=== PATIENT | female | born 2000 | race Caucasian/White ===

== ENCOUNTER 2021-08-01 10:09 | Observation (INO) ==
[2021-08-01] MEDS ORDERED: SODIUM CHLORIDE 0.9% 1000ML 1,000 ML IV STA (11:16)
[2021-08-01] MEDS ORDERED: ONDANSETRON INJ 2 MG/ML 2 ML VIAL IV STA ×2 (11:21→11:58)
--- NOTE | 2021-08-01 11:21 | Emergency Department Note ---
History of Present Illness General Chief complaint: Vomiting Stated complaint: VOMITING DEHYDRATED Time Seen by Provider: 08/01/21 11:05 Source: patient Mode of arrival: ambulatory Limitations: no limitations History of Present Illness Maximum Pain Intensity: 8 This patient is a 20-year-old female comes in after having multiple episodes of vomiting since around 5:00 in the morning. She says been dark with may be slight streaks of blood. No history of similar. Denies . No trauma or injury. She had normal bowel movements with the last 2 hours ago without any diarrhea constipation or blood or melena. No fever or chills. no chest pain or shortness of breath with exception of she says when she gets nauseated she does feel somewhat short of breath. No unusual food or sick contacts did have the Co vid vaccine. No headache. She did drink heavily yesterday at the football game. She said it was social denies that she was trying to hurt herself or overdose. Home Medications Medication Instructions Recorded Confirmed Type norgestrel 0.3 mg-ethinyl 1 tab PO DAILY 11/04/19 08/01/21 History estradiol 30 mcg tablet (Charisma (28)) fluoxetine 10 mg capsule 10 mg PO DAILY 08/01/21 08/01/21 History Allergies Allergy/AdvReac Type Severity Reaction Status Date / Time bacitracin Allergy Redness of Unverified 08/01/21 12:06 [From Neosporin Skin ([id number])] neomycin Allergy Redness of Unverified 08/01/21 12:06 [From Neosporin Skin ([id number])] polymyxin B Allergy Redness of Unverified 08/01/21 12:06 [From Neosporin Skin ([id number])] Past Med/Surg History Medical History (Updated 08/01/21 @ 15:23 by Nora Ochoa PA-C) GERD (gastroesophageal reflux disease) Surgical History (Updated 08/01/21 @ 14:08 by Nora Ochoa PA-C) History of shoulder surgery R labral repair History of wisdom tooth extraction Family History (Updated 08/01/21 @ 14:09 by Nora Ochoa PA-C) Mother Hypertension Father Hypertension Gout Other Kidney stones Social History (Updated 09/12/21 @ 14:10 by Nora Ochoa PA-C) Smoking Status: Never smoker Hx Alcohol Use: Yes Alcohol type: beer and hard liquor Alcohol Intake Frequency: 2-4 x/Month Hx Substance Use: No Preferred Language: [place]al[place] marital status: Single Feels Safe at Home: Yes Review of Systems A total of 10 systems reviewed and were otherwise negative Physical Exam Vital Signs Vital Signs - 24 hr 08/01/21 10:35 08/01/21 11:06 08/01/21 11:30 Temperature 36.7 C Temperature Source Temporal Artery Scan Pulse Rate 90 83 83 Pulse Rate from SpO2 Sensor 87 83 Pulse Rhythm Respiratory Rate 18 14 17 Respiratory Effort / Characteristics Non-Labored Spontaneous Respiratory Depth Normal Respiratory Pattern Regular Blood Pressure 166/93 H 153/95 H 148/91 H Blood Pressure Mean 117 114 110 Blood Pressure Position Sitting Pulse Oximetry 100 100 100 Oxygen Delivery Method Room Air Room Air Room Air Sepsis Recent Fever Within 48 Hours No Sepsis New/Unexplained Change in Mental Status N/A Sepsis Action Taken by Nursing No Action Required 08/01/21 11:48 08/01/21 12:00 08/01/21 12:54 Temperature Temperature Source Pulse Rate 88 91 H 90 Pulse Rate from SpO2 Sensor 92 H Pulse Rhythm Regular Respiratory Rate 20 32 H 20 Respiratory Effort / Characteristics Respiratory Depth Respiratory Pattern Blood Pressure 151/95 H 150/101 H Blood Pressure Mean 113 117 Blood Pressure Position Pulse Oximetry 100 100 Oxygen Delivery Method Nasal Cannula Room Air Sepsis Recent Fever Within 48 Hours Sepsis New/Unexplained Change in Mental Status Sepsis Action Taken by Nursing 08/01/21 13:00 08/01/21 13:30 08/01/21 14:00 Temperature Temperature Source Pulse Rate 82 77 73 Pulse Rate from SpO2 Sensor Pulse Rhythm Respiratory Rate 24 21 19 Respiratory Effort / Characteristics Respiratory Depth Respiratory Pattern Blood Pressure 147/104 H 145/102 H 129/81 Blood Pressure Mean 118 116 97 Blood Pressure Position Pulse Oximetry Oxygen Delivery Method Sepsis Recent Fever Within 48 Hours Sepsis New/Unexplained Change in Mental Status Sepsis Action Taken by Nursing 08/01/21 14:56 08/01/21 15:00 08/01/21 15:30 Temperature Temperature Source Pulse Rate 87 77 Pulse Rate from SpO2 Sensor 82 88 76 Pulse Rhythm Respiratory Rate 19 18 Respiratory Effort / Characteristics Respiratory Depth Respiratory Pattern Blood Pressure 133/68 135/74 Blood Pressure Mean 89 94 Blood Pressure Position Pulse Oximetry 98 100 99 Oxygen Delivery Method Room Air Room Air Sepsis Recent Fever Within 48 Hours Sepsis New/Unexplained Change in Mental Status Sepsis Action Taken by Nursing General: Well developed well nourished uncomfortable appearing young female who is holding an emesis bag and complains of feeling nauseated but in no acute distress, breathing comfortably on room air. HEENT: Normal cephalic atraumatic. Pupils are equal round and reactive to light. Extraocular movements are intact. Oropharynx is pink with moist mucous membranes. No swelling of the mouth lips or tongue. Neck: Supple with a midline trachea. No meningeal signs or stiffness, no JVD or bruits. No Stridor. Chest: Clear to auscultation bilaterally. No wheezes or rhonchi. No increased work of breathing. Heart: Regular rate and rhythm without murmurs or gallops. Abdomen: Soft nontender, nondistended without rebound guarding or rigidity. Extremities: No cyanosis clubbing or edema. No calf tenderness or assymetry Spine/Back. Non tender to palpation. No CVA tenderness Skin: Good turgor without rashes. Neurologic exam: Cranial nerves two through 12 are intact. Motor and sensation are intact and symmetrical throughout. Course Administered Medications Potassium Chloride (K Federico / Wtr) 10 meq in 100 mls @ 100 mls/hr IV Q1H BLAS Stop: 08/01/21 16:29 Last Admin: 08/01/21 14:55 Dose: 100 mls/hr Documented by: [id number] Discontinued Medications Sodium Chloride (Nss 1000ml) 1,000 mls @ 999 mls/hr IV .Q1H1M STA Stop: 08/01/21 12:16 Last Infusion: 08/01/21 12:28 Dose: 0 mls/hr Documented by: [id number] Admin: 08/01/21 11:27 Dose: 999 mls/hr Documented by: [id number] Sodium Chloride (Nss 1000ml) 1,000 mls @ 999 mls/hr IV .Q1H1M ONE Stop: 08/01/21 13:04 Last Infusion: 08/01/21 13:11 Dose: 0 mls/hr Documented by: [id number] Admin: 08/01/21 12:10 Dose: 999 mls/hr Documented by: [id number] Promethazine HCl (Phenergan) 12.5 mg in 50.5 mls @ 202 mls/hr IV NOW STA Stop: 08/01/21 13:52 Last Infusion: 08/01/21 14:01 Dose: 0 mls/hr Documented by: [id number] Admin: 08/01/21 13:46 Dose: 202 mls/hr Documented by: [id number] Ioversol (Optiray 320 100ml) 93 ml IV ONCE ONE Stop: 08/01/21 12:36 Last Admin: 08/01/21 12:35 Dose: 93 ml Documented by: [id number] Morphine Sulfate (Morphine Sulfate 2 Mg/Ml Carp) 2 mg IV NOW STA Stop: 08/01/21 11:59 Last Admin: 08/01/21 12:09 Dose: 2 mg Documented by: [id number] Morphine Sulfate (Morphine Sulfate 2 Mg/Ml Carp) 2 mg IV NOW STA Stop: 08/01/21 12:55 Last Admin: 08/01/21 12:57 Dose: 2 mg Documented by: [id number] Ondansetron HCl (Ondansetron Inj 2 Mg/Ml 2 Ml Vial) 4 mg IV NOW STA Stop: 08/01/21 11:22 Last Admin: 08/01/21 11:27 Dose: 4 mg Documented by: [id number] Ondansetron HCl (Ondansetron Inj 2 Mg/Ml 2 Ml Vial) 4 mg IV NOW STA Stop: 08/01/21 11:59 Last Admin: 08/01/21 12:09 Dose: 4 mg Documented by: [id number] Medical Decision Making Differential Diagnosis Gastritis, dehydration, Rubi-Boyer, anemia, , cardiac disease, surgical disease, electrolyte or metabolic abnormality, pulmonary disease Medical Records Attestation: I reviewed the patient's medical records. Laboratory Data Attestation: I reviewed the patient's lab results. Result diagrams: 08/01/21 11:07 08/01/21 11:07 Lab Results 08/01/21 08/01/21 08/01/21 Range/Units 11:07 11:07 11:07 WBC 27.18 H (4.8-10.8) K/uL RBC 4.37 (4.2-5.4) M/uL Hgb 13.8 (12.0-16.0) g/dL Hct 39.5 (37-47) % MCV 90.4 (80-100) fL MCH 31.6 (25-34) pg MCHC 34.9 (32-36) g/dL RDW Std Deviation 41.8 (36.4-46.3) fL RDW Coeff of Cole 12.7 (11.5-14.5) % Plt Count 495 H (130-400) K/uL MPV 9.1 (7.4-10.4) fL Immature Gran % (Auto) 0.6 % Neut % (Auto) 88.9 % Lymph % (Auto) 5.8 % Todd % (Auto) 4.5 % Eos % (Auto) 0.0 % Baso % (Auto) 0.2 % Neut # (Auto) 24.19 H (1.4-6.5) K/uL Lymph # (Auto) 1.57 (1.2-3.4) K/uL Todd # (Auto) 1.22 H (0.11-0.59) K/uL Eos # (Auto) 0.00 (0-0.5) K/uL Baso # (Auto) 0.05 (0-0.2) K/uL Immature Gran # (Auto) 0.15 H (0.00-0.02) K/uL Sodium 143 (136-145) mmol/L Potassium 3.3 L (3.5-5.1) mmol/L Chloride 112 H (98-107) mmol/L Carbon Dioxide 16 L (21-32) mmol/L Anion Gap 15.0 H (3-11) BUN 16 (7-18) mg/dl Creatinine 1.04 (0.6-1.2) mg/dl Est Cr Clr Drug Dosing 64.6 ml/min Est GFR ( Amer) 88.9 ml/min Est GFR (Non-Af Amer) 76.7 ml/min BUN/Creatinine Ratio 15.1 (10-20) Glucose 126 H (70-99) mg/dl Osmolality (280-300) mOsm/kg Calcium 9.2 (8.5-10.1) mg/dl Total Bilirubin 0.5 (0.2-1) mg/dl AST 42 H (15-37) U/L ALT 32 (12-78) U/L Alkaline Phosphatase 94 (45-117) U/L Troponin I (0-0.045) ng/ml Total Protein 8.8 H (6.4-8.2) gm/dl Albumin 4.2 (3.4-5.0) gm/dl Globulin 4.6 H (2.5-4.0) gm/dl Albumin/Globulin Ratio 0.9 (0.9-2) Lipase 76 (73-393) U/L HCG, Qual Negative (Negative) Urine Color Urine Appearance (Clear) Urine pH (4.5-7.5) Ur Specific [place] (1.000-1.030) Urine Protein (Negative) Urine Glucose (UA) (Negative) Urine Ketones (Negative) Urine Blood (Negative) Urine Nitrite (Negative) Urine Bilirubin (Negative) Urine Urobilinogen (Negative) Ur Leukocyte Esterase (Negative) Urine WBC (Auto) (0-5) /hpf Urine RBC (Auto) (0-4) /hpf U Hyaline Cast (Auto) (0-5) /lpf U Epithel Cells (Auto) (0-5) /lpf Urine Bacteria (Auto) (Negative) COVID-19 Eval Order 08/01/21 08/01/21 08/01/21 Range/Units 11:07 11:07 13:13 WBC (4.8-10.8) K/uL RBC (4.2-5.4) M/uL Hgb (12.0-16.0) g/dL Hct (37-47) % MCV (80-100) fL MCH (25-34) pg MCHC (32-36) g/dL RDW Std Deviation (36.4-46.3) fL RDW Coeff of Cole (11.5-14.5) % Plt Count (130-400) K/uL MPV (7.4-10.4) fL Immature Gran % (Auto) % Neut % (Auto) % Lymph % (Auto) % Todd % (Auto) % Eos % (Auto) % Baso % (Auto) % Neut # (Auto) (1.4-6.5) K/uL Lymph # (Auto) (1.2-3.4) K/uL Todd # (Auto) (0.11-0.59) K/uL Eos # (Auto) (0-0.5) K/uL Baso # (Auto) (0-0.2) K/uL Immature Gran # (Auto) (0.00-0.02) K/uL Sodium (136-145) mmol/L Potassium (3.5-5.1) mmol/L Chloride (98-107) mmol/L Carbon Dioxide (21-32) mmol/L Anion Gap (3-11) BUN (7-18) mg/dl Creatinine (0.6-1.2) mg/dl Est Cr Clr Drug Dosing ml/min Est GFR ( Amer) ml/min Est GFR (Non-Af Amer) ml/min BUN/Creatinine Ratio (10-20) Glucose (70-99) mg/dl Osmolality 311 H (280-300) mOsm/kg Calcium (8.5-10.1) mg/dl Total Bilirubin (0.2-1) mg/dl AST (15-37) U/L ALT (12-78) U/L Alkaline Phosphatase (45-117) U/L Troponin I < 0.015 (0-0.045) ng/ml Total Protein (6.4-8.2) gm/dl Albumin (3.4-5.0) gm/dl Globulin (2.5-4.0) gm/dl Albumin/Globulin Ratio (0.9-2) Lipase (73-393) U/L HCG, Qual (Negative) Urine Color Yellow Urine Appearance Clear (Clear) Urine pH 7.5 (4.5-7.5) Ur Specific [place] 1.025 (1.000-1.030) Urine Protein Negative (Negative) Urine Glucose (UA) Negative (Negative) Urine Ketones 1+ H (Negative) Urine Blood Trace H (Negative) Urine Nitrite Negative (Negative) Urine Bilirubin Negative (Negative) Urine Urobilinogen Negative (Negative) Ur Leukocyte Esterase Negative (Negative) Urine WBC (Auto) 5-10 H (0-5) /hpf Urine RBC (Auto) 0-4 (0-4) /hpf U Hyaline Cast (Auto) 1-5 (0-5) /lpf U Epithel Cells (Auto) 20-30 H (0-5) /lpf Urine Bacteria (Auto) Negative (Negative) COVID-19 Eval Order 08/01/21 Range/Units 15:08 WBC (4.8-10.8) K/uL RBC (4.2-5.4) M/uL Hgb (12.0-16.0) g/dL Hct (37-47) % MCV (80-100) fL MCH (25-34) pg MCHC (32-36) g/dL RDW Std Deviation (36.4-46.3) fL RDW Coeff of Cole (11.5-14.5) % Plt Count (130-400) K/uL MPV (7.4-10.4) fL Immature Gran % (Auto) % Neut % (Auto) % Lymph % (Auto) % Todd % (Auto) % Eos % (Auto) % Baso % (Auto) % Neut # (Auto) (1.4-6.5) K/uL Lymph # (Auto) (1.2-3.4) K/uL Todd # (Auto) (0.11-0.59) K/uL Eos # (Auto) (0-0.5) K/uL Baso # (Auto) (0-0.2) K/uL Immature Gran # (Auto) (0.00-0.02) K/uL Sodium (136-145) mmol/L Potassium (3.5-5.1) mmol/L Chloride (98-107) mmol/L Carbon Dioxide (21-32) mmol/L Anion Gap (3-11) BUN (7-18) mg/dl Creatinine (0.6-1.2) mg/dl Est Cr Clr Drug Dosing ml/min Est GFR ( Amer) ml/min Est GFR (Non-Af Amer) ml/min BUN/Creatinine Ratio (10-20) Glucose (70-99) mg/dl Osmolality (280-300) mOsm/kg Calcium (8.5-10.1) mg/dl Total Bilirubin (0.2-1) mg/dl AST (15-37) U/L ALT (12-78) U/L Alkaline Phosphatase (45-117) U/L Troponin I (0-0.045) ng/ml Total Protein (6.4-8.2) gm/dl Albumin (3.4-5.0) gm/dl Globulin (2.5-4.0) gm/dl Albumin/Globulin Ratio (0.9-2) Lipase (73-393) U/L HCG, Qual (Negative) Urine Color Urine Appearance (Clear) Urine pH (4.5-7.5) Ur Specific [place] (1.000-1.030) Urine Protein (Negative) Urine Glucose (UA) (Negative) Urine Ketones (Negative) Urine Blood (Negative) Urine Nitrite (Negative) Urine Bilirubin (Negative) Urine Urobilinogen (Negative) Ur Leukocyte Esterase (Negative) Urine WBC (Auto) (0-5) /hpf Urine RBC (Auto) (0-4) /hpf U Hyaline Cast (Auto) (0-5) /lpf U Epithel Cells (Auto) (0-5) /lpf Urine Bacteria (Auto) (Negative) COVID-19 Eval Order Covid19 at [facility] Imaging Data Attestation: I personally reviewed and interpreted this imaging study as follows: My Impression: Chest xray- Radiologist's Impression: Chest X-Ray 08/01/21 11:16 XR chest 1V portable HISTORY: vomiting COMPARISON: Chest 11/04/2019. FINDINGS: The lungs are clear. Cardiac silhouette is normal in size. No pleural effusions. No pneumothorax. IMPRESSION: No acute process. ACT 112: Negative or not required by law. Electronically signed by: Phil Borja M.D. 08/01/2021 11:33 AM Abdomen/Pelvis CT 08/01/21 12:[address] WITH CONTRAST, ABDOMEN AND PELVIS CT WITH INTRAVENOUS CONTRAST CT DOSE: 447.51 mGy.cm HISTORY: epigastric pain vomiting, eval for esophageal injury. TECHNIQUE: Multiaxial CT images of the chest, abdomen, and pelvis were performed following the intravenous administration of contrast. A dose lowering technique was utilized adhering to the principles of ALARA. COMPARISON: Abdomen and pelvis CT 11/04/2019. FINDINGS: Chest CT: Question mild thickening at the gastroesophageal junction. No paraesophageal edema or pneumoperitoneum to suggest esophageal tear. No pneumothorax. The central airways are patent. The lungs are clear. No fractures within the visualized osseous structures. The mediastinal vascular structures are within normal limits. No pleural or pericardial effusions. Abdomen/pelvis CT: No pneumoperitoneum. No pneumatosis. The liver, gallbladder, spleen, adrenal glands, pancreas, and kidneys are unremarkable. No hydronephrosis. The main portal vein is patent. No retroperitoneal lymphadenopathy. Normal caliber abdominal aorta. The bladder is unremarkable. The uterus and bilateral adnexa are within normal limits. No pelvic free fluid. No bowel wall thickening or obstruction. Normal appendix. IMPRESSION: 1. Questionable mild thickening at the gastroesophageal junction. However, no paraesophageal edema/fluid or pneumoperitoneum to suggest an esophageal tear. 2. No bowel wall thickening or obstruction. 3. The lungs are clear. ACT 112: Negative or not required by law. Electronically signed by: Phil Borja M.D. 08/01/2021 1:[address] 08/01/21 12:[address] WITH CONTRAST, ABDOMEN AND PELVIS CT WITH INTRAVENOUS CONTRAST CT DOSE: 447.51 mGy.cm HISTORY: epigastric pain vomiting, eval for esophageal injury. TECHNIQUE: Multiaxial CT images of the chest, abdomen, and pelvis were performed following the intravenous administration of contrast. A dose lowering technique was utilized adhering to the principles of ALARA. COMPARISON: Abdomen and pelvis CT 11/04/2019. FINDINGS: Chest CT: Question mild thickening at the gastroesophageal junction. No par aesophageal edema or pneumoperitoneum to suggest esophageal tear. No pneumothorax. The central airways are patent. The lungs are clear. No fractures within the visualized osseous structures. The mediastinal vascular structures are within normal limits. No pleural or pericardial effusions. Abdomen/pelvis CT: No pneumoperitoneum. No pneumatosis. The liver, gallbladder, spleen, adrenal glands, pancreas, and kidneys are unremarkable. No hydronephrosis. The main portal vein is patent. No retroperitoneal lymphadenopathy. Normal caliber abdominal aorta. The bladder is unremarkable. The uterus and bilateral adnexa are within normal limits. No pelvic free fluid. No bowel wall thickening or obstruction. Normal appendix. IMPRESSION: 1. Questionable mild thickening at the gastroesophageal junction. However, no paraesophageal edema/fluid or pneumoperitoneum to suggest an esophageal tear. 2. No bowel wall thickening or obstruction. 3. The lungs are clear. ACT 112: Negative or not required by law. Electronically signed by: Phil Borja M.D. 08/01/2021 1:02 PM ECG Data Attestation: I personally reviewed and interpreted this ECG as follows: Indication: + chest pain Rate (beats per minute): 86 Rhythm: + normal sinus ECG Intervals/blocks: + Normal QRS, + Normal QT and + Normal DE ECG [place]: + Normal ECG ST segments: + T-wave inversions (Inferior) ECG Findings: no PACs or no PVCs Comparison ECG Date: no prior available MDM Narrative This patient comes in as described above. He was placed in room C7. She is here for treatment evaluation of vomiting. She appears uncomfortable but in no significant respiratory distress. IV access was established hydrated wth a 1 L IV normal saline bolus and given Zofran 4 mg IV. Multiple blood testing was obtained. She was reassessed frequently. She did receive the fluids but still was feeling nauseated and complained of pain. Concerned that her white count was 27,000 which was much higher than expected she is also somewhat acidotic. Her BUN and creatinine are normal however given her slender body habitus may be elevated for her. I did order additional IV fluids as well as additional Zofran 4 mg and morphine 2 mg IV as she was complained of pain I did order CAT scan of the chest and abdomen with IV contrast as it wanted to rule out any surgical or traumatic issue. Particular vomiting were make sure there was not any evidence to suggest esophageal rupture. There is nothing to suggest that on plain films. EKG does not suggest acute coronary syndrome or arrhythmia. I did discuss the case with Dr. Patricia Johnson who recommends we do observe her. The patient has thrown up some blood prior to coming here and it could be that she has Rubi- Boyer tear as well. She continues to have some nausea we did give her Phenergan 12.5 mg IV. I have consulted the [facility] hospitalist to see her in the ER for further evaluation/admission/observation. Continuous cardiac monitoring: Orders placed in EMR for continuous cardiac monitoring. Upon interpretation the patient was noted to have a normal sinus rhythm with a rate of 90 Impression & Plan Vomiting, Gastritis, Epigastric abdominal pain, Not currently Discharge Plan Visit Data Chief Complaint: Vomiting Stated Complaint: VOMITING DEHYDRATED ED Provider: Zurdo Boggs Discharge Problem: Vomiting, Gastritis, Epigastric abdominal pain, Not currently Forms Stand Alone Forms: [employer] Prescriptions Prescriptions: No Action Cryselle (28) 0.3-30 mg-mcg Tablet 1 tab PO DAILY RF: 0 fluoxetine 10 mg capsule 10 mg PO DAILY RF: 0 Referrals Referrals: Valentine Knapp MD [Primary Care Provider] - Discharge Problem: Vomiting Qualifiers: Vomiting type: unspecified Vomiting Intractability: non-intractable Nausea presence: with nausea Qualified Code(s): R11.2 - Nausea with vomiting, unspecified Gastritis Qualifiers: Gastritis type: alcoholic Chronicity: acute Gastritis bleeding: presence of bleeding unspecified Qualified Code(s): K29.20 - Alcoholic gastritis without bleeding
[2021-08-01 11:25] LABS: Hematocrit (blood only) 39.5 % (37-47); Hemoglobin 13.8 g/dL (12.0-16.0); Mean Corpuscular Hemoglobin 31.6 pg (25-34); Mean Corpuscular Hgb Conc 34.9 g/dL (32-36); Mean Corpuscular Volume 90.4 fL (80-100); Mean Platelet Volume 9.1 fL (7.4-10.4); Platelet Count 495 K/uL (130-400); RDW Coefficient of Variation 12.7 % (11.5-14.5); RDW Standard Deviation 41.8 fL (36.4-46.3); Red Blood Count 4.37 M/uL (4.2-5.4); White Blood Count 27.18 K/uL (4.8-10.8)
--- NOTE | 2021-08-01 11:34 | XRay Report ---
XR chest 1V portable HISTORY: vomiting COMPARISON: Chest 11/04/2019. FINDINGS: The lungs are clear. Cardiac silhouette is normal in size. No pleural effusions. No pneumot horax. IMPRESSION: No acute process. ACT 112: Negative or not required by law. Electronically signed by: Phil Borja M.D. 08/01/2021 11:33 AM
[2021-08-01 11:44] LABS: Albumin Level 4.2 gm/dl (3.4-5.0); BUN Creatinine Ratio 15.1 (10-20); Calcium 9.2 mg/dl (8.5-10.1); Creatinine Clr Calc Pharmacy 64.6 ml/min; Est GFR (African American) 88.9 ml/min; Est GFR (Non-African American) 76.7 ml/min; Potassium 3.3 mmol/L (3.5-5.1)
[2021-08-01 11:46] LABS: Basophils # (auto) 0.05 K/uL (0-0.2); Basophils % (auto) 0.2 %; Immature Granulocytes # (auto) 0.15 K/uL (0.00-0.02); Immature Granulocytes % (auto) 0.6 %; Lymphocytes # (auto) 1.57 K/uL (1.2-3.4); Lymphocytes % (auto) 5.8 %; Monocytes # (auto) 1.22 K/uL (0.11-0.59); Monocytes % (auto) 4.5 %; Neutrophils # (auto) 24.19 K/uL (1.4-6.5); Neutrophils % (auto) 88.9 %
[2021-08-01 11:47] LABS: Albumin Globulin Ratio 0.9 (0.9-2); Bilirubin,Total 0.5 mg/dl (0.2-1); Globulin 4.6 gm/dl (2.5-4.0); Total Protein 8.8 gm/dl (6.4-8.2)
[2021-08-01 11:52] LABS: Pregnancy Test, Serum Negative (Negative)
[2021-08-01] MEDS ORDERED: MoRPHine SULFATE 2 MG/ML CARP IV STA ×2 (11:58→12:54)
[2021-08-01] MEDS ORDERED: SODIUM CHLORIDE 0.9% 1000ML 1,000 ML IV ONE (12:04)
[2021-08-01] MEDS ORDERED: OPTIRAY 320 100ml IV ONE (12:35)
--- NOTE | 2021-08-01 13:03 | CT Scan Report ---
CHEST CT WITH CONTRAST, ABDOMEN AND PELVIS CT WITH INTRAVENOUS CONTRAST CT DOSE: 447.51 mGy.cm HISTORY: epigastric pain vomiting, eval for esophageal injury. TECHNIQUE: Multiaxial CT images of the chest, abdomen, and pelvis were performed following the intrav enous administration of contrast. A dose lowering technique was utilized adhering to the principles of ALARA. COMPARISON: Abdomen and pelvis CT 11/04/2019. FINDINGS: Chest CT: Question mild thickening at the gastroesophageal junction. No paraesophageal edema or pneum operitoneum to suggest esophageal tear. No pneumothorax. The central airways are patent. The lungs ar e clear. No fractures within the visualized osseous structures. The mediastinal vascular structures a re within normal limits. No pleural or pericardial effusions. Abdomen/pelvis CT: No pneumoperitoneum. No pneumatosis. The liver, gallbladder, spleen, adrenal gland s, pancreas, and kidneys are unremarkable. No hydronephrosis. The main portal vein is patent. No retr operitoneal lymphadenopathy. Normal caliber abdominal aorta. The bladder is unremarkable. The uterus and bilateral adnexa are within normal limits. No pelvic free fluid. No bowel wall thickening or obst ruction. Normal appendix. IMPRESSION: 1. Questionable mild thickening at the gastroesophageal junction. However, no paraesophageal edema/fl uid or pneumoperitoneum to suggest an esophageal tear. 2. No bowel wall thickening or obstruction. 3. The lungs are clear. ACT 112: Negative or not required by law. Electronically signed by: Phil Borja M.D. 08/01/2021 1:02 PM
[2021-08-01 13:33] LABS: Appearance Urine Clear (Clear); Bacteria Urine Automated Negative (Negative); Bilirubin Urine Negative (Negative); Blood Urine Trace (Negative); Color Urine Yellow; Epithelial Cell Urine Auto 20-30 /lpf (0-5); Glucose Urine UA Negative (Negative); Ketones Urine 1+ (Negative); Leukocyte Esterase Urine Negative (Negative); Nitrite Urine Negative (Negative); Protein Urine Negative (Negative); RBC Urine Automated 0-4 /hpf (0-4); Specific Gravity Urine 1.025 (1.000-1.030); Urobilinogen Urine Negative (Negative); pH Urine 7.5 (4.5-7.5)
[2021-08-01] MEDS ORDERED: PROMETHAZINE 12.5 MG/50.5 ML BAG IV STA (13:38)
--- NOTE | 2021-08-01 14:46 | History & Physical Report ---
Date of Service August 01, 2021 Assessment & Plan (1) High anion gap metabolic acidosis: (2) Vomiting: (3) Epigastric abdominal pain: (4) Leukocytosis: (5) Hypokalemia: Plan: Otherwise healthy 20 year old F, [employer] college student, studying kinesiology who presents with intractable nausea and vomiting since 5 AM. She reports hematemesis and "brown vomit." She did partake in drinking activities yesterday during tailgating including two -12 oz truly seltzers and 2 shots of tequila. Denies substance use including marijuana. Ddx: rubi cruz tear, gastritis, esophagitis, pancreatitis among others High anion gap metabolic acidosis Vomiting Epigastric pain admit under obs to med/surg IVF NS + 20meq KCL x 2 L IV Phenergan for nausea consult GI IV PPI BID clear liquid diet tonight NPO after midnight CBC, CMP, Lipase in a.m. Hypokalemia replace Leukocytosis Likely reactive in setting of intractable nausea vomiting No signs or symptoms of infection Repeat in a.m. Depression Continue Prozac On oral contraceptive therapy Dvt ppx: encourage ambulation Q shift Dispo: MedSurg PCP: Valentine Knapp - Pt is a [employer] student FULL CODE Pt was seen and examined in collaboration with Dr. Mascorro, please see addendum History of Present Illness Chief Complaint: Intractable nausea and vomiting since 5 AM. Primary Care Provider: Valentine Knapp MD This is an otherwise healthy 20-year-old female who is a student at [employer] studying kinesiology who presents to ED after developing intractable nausea and vomiting since 5 AM. She states she has been vomiting persistently since 5 AM with associated nausea, epigastric pain and chest pain. Initially pain started in epigastrium, was nonradiating, sharp, nothing made better or worse, but has since radiated to the chest which she describes as burning. She describes vomiting as being profuse and brown with occasional blood. She feels her mouth now taste like blood. She has had history of indigestion in the past but has never had anything significant like this. 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 She was tailgating yesterday and does admit to having 2 shots of tequila and to truly's. She states she typically drinks much more than this so does not suspect this is related to drinking. She denies any illicit substance use. She feels chills and sweats but denies any gaye fever, lightheadedness, dizziness, cough, URI symptoms, dysuria, increased urgency or frequency with urination, melena or hematochezia. She does have underlying depression and anxiety for which she takes Prozac for. She is also on control. In ED they were having difficulty controlling symptoms which is why she was referred for admission. She received 2 L of IV fluid as well as 8 mg of IV Zofran and 4 mg of IV morphine. Prior to my evaluation she did receive IV Phenergan which has subsided her symptoms. ED did reach out to GI on-call Dr. Lainez who recommended observation due to possible concern for Rubi-Cruz tear. Allergies Allergy/AdvReac Type Severity Reaction Status Date / Time bacitracin Allergy Redness of Unverified 08/01/21 12:06 [From Neosporin Skin ([id number])] neomycin Allergy Redness of Unverified 08/01/21 12:06 [From Neosporin Skin ([id number])] polymyxin B Allergy Redness of Unverified 08/01/21 12:06 [From Neosporin Skin ([id number])] Home Medications Medication Instructions Recorded Confirmed Type norgestrel 0.3 mg-ethinyl 1 tab PO DAILY 11/04/19 08/01/21 History estradiol 30 mcg tablet (Charisma (28)) fluoxetine 10 mg capsule 10 mg PO DAILY 08/01/21 08/01/21 History Past Med/Surg History Medical History (Updated 08/01/21 @ 15:23 by Nora Ochoa PA-C) GERD (gastroesophageal reflux disease) Surgical History (Updated 08/01/21 @ 14:08 by Nora Ochoa PA-C) History of shoulder surgery R labral repair History of wisdom tooth extraction Family History (Updated 08/01/21 @ 14:09 by Nora Ochoa PA-C) Mother Hypertension Father Hypertension Gout Other Kidney stones Social History (Updated 08/01/21 @ 14:10 by Nora Ochoa PA-C) Smoking Status: Never smoker Hx Alcohol Use: Yes Alcohol type: beer and hard liquor Alcohol Intake Frequency: 2-4 x/Month Hx Substance Use: No Preferred Language: Macedonian marital status: Single Feels Safe at Home: Yes Review of Systems Review of Systems: All systems reviewed & are unremarkable except as noted in HPI & below Physical Exam Physical Exam: Constitutional: Petite, F, WD/WN, vitals as above, NAD, sitting up in bed, pleasant, conversing easily Head: Normocephalic, Atraumatic Eyes: PERRL, conjunctivae normal, anicteric sclerae ENMT: external ear and nose normal, oropharynx normal Neck: trachea midline, no thyromegaly normal visual inspection Respiratory: normal respiratory effort, lungs clear to auscultation, no wheeze, rales, rhonchi. Normal insp/exp effort, no accessory muscle use Cardiovascular: RRR, no murmur, no edema Vessels: no JVD or carotid bruit Chest: normal inspection of chest + pain to palpation to sternum Abdomen: normal bowel sounds, soft, + epigastric tenderness, no hepatosplenomegaly Musculoskeletal: no cyanosis or clubbing, extremities motor strength 5/5 Skin: no rashes, warm and dry normal turgor Neurologic: PERRL, EOMI, accommodation nl, no face palsy, no dysarthria CN's II-XI intact bilaterally and moves all extremities Psychiatric: A+Ox3, euthymic affect Lymphatic: no cervical or axillary lymphadenopathy : deferred Results & Data Results & Data ([facility]) Vital Signs (Past 12 Hours) Vital Signs Temp Pulse Resp BP Pulse Ox 08/01/21 12:00 91 H 32 H 151/95 H 08/01/21 11:48 88 20 100 08/01/21 11:30 83 17 148/91 H 100 08/01/21 11:06 83 14 153/95 H 100 08/01/21 10:35 36.7 C 90 18 166/93 H 100 Diagnostic Findings Chest X-Ray 08/01/21 11:16 XR chest 1V portable HISTORY: vomiting COMPARISON: Chest 11/04/2019. FINDINGS: The lungs are clear. Cardiac silhouette is normal in size. No pleural effusions. No pneumothorax. IMPRESSION: No acute process. ACT 112: Negative or not required by law. Electronically signed by: Phil Borja M.D. 08/01/2021 11:33 AM Abdomen/Pelvis CT 08/01/21 12:[address] WITH CONTRAST, ABDOMEN AND PELVIS CT WITH INTRAVENOUS CONTRAST CT DOSE: 447.51 mGy.cm HISTORY: epigastric pain vomiting, eval for esophageal injury. TECHNIQUE: Multiaxial CT images of the chest, abdomen, and pelvis were performed following the intravenous administration of contrast. A dose lowering technique was utilized adhering to the principles of ALARA. COMPARISON: Abdomen and pelvis CT 11/04/2019. FINDINGS: Chest CT: Question mild thickening at the gastroesophageal junction. No paraesophageal edema or pneumoperitoneum to suggest esophageal tear. No pneumothorax. The central airways are patent. The lungs are clear. No fractures within the visualized osseous structures. The mediastinal vascular structures are within normal limits. No pleural or pericardial effusions. Abdomen/pelvis CT: No pneumoperitoneum. No pneumatosis. The liver, gallbladder, spleen, adrenal glands, pancreas, and kidneys are unremarkable. No hydronephrosis. The main portal vein is patent. No retroperitoneal ly mphadenopathy. Normal caliber abdominal aorta. The bladder is unremarkable. The uterus and bilateral adnexa are within normal limits. No pelvic free fluid. No bowel wall thickening or obstruction. Normal appendix. IMPRESSION: 1. Questionable mild thickening at the gastroesophageal junction. However, no paraesophageal edema/fluid or pneumoperitoneum to suggest an esophageal tear. 2. No bowel wall thickening or obstruction. 3. The lungs are clear. ACT 112: Negative or not required by law. Electronically signed by: Phil Borja M.D. 08/01/2021 1:[address] 08/01/21 12:[address] WITH CONTRAST, ABDOMEN AND PELVIS CT WITH INTRAVENOUS CONTRAST CT DOSE: 447.51 mGy.cm HISTORY: epigastric pain vomiting, eval for esophageal injury. TECHNIQUE: Multiaxial CT images of the chest, abdomen, and pelvis were performed following the intravenous administration of contrast. A dose lowering technique was utilized adhering to the principles of ALARA. COMPARISON: Abdomen and pelvis CT 11/04/2019. FINDINGS: Chest CT: Question mild thickening at the gastroesophageal junction. No paraesophageal edema or pneumoperitoneum to suggest esophageal tear. No pneumothorax. The central airways are patent. The lungs are clear. No fractures within the visualized osseous structures. The mediastinal vascular structures are within normal limits. No pleural or pericardial effusions. Abdomen/pelvis CT: No pneumoperitoneum. No pneumatosis. The liver, gallbladder, spleen, adrenal glands, pancreas, and kidneys are unremarkable. No hydronephrosis. The main portal vein is patent. No retroperitoneal lymphadenopathy. Normal caliber abdominal aorta. The bladder is unremarkable. The uterus and bilateral adnexa are within normal limits. No pelvic free fluid. No bowel wall thickening or obstruction. Normal appendix. IMPRESSION: 1. Questionable mild thickening at the gastroesophageal junction. However, no paraesophageal edema/fluid or pneumoperitoneum to suggest an esophageal tear. 2. No bowel wall thickening or obstruction. 3. The lungs are clear. ACT 112: Negative or not required by law. Electronically signed by: Phil Borja M.D. 08/01/2021 1:02 PM Medications Administered Medication List Discontinued Medications Sodium Chloride (Nss 1000ml) 1,000 mls @ 999 mls/hr IV .Q1H1M STA Stop: 08/01/21 12:16 Last Infusion: 08/01/21 12:28 Dose: 0 mls/hr Documented by: [id number] Admin: 08/01/21 11:27 Dose: 999 mls/hr Documented by: [id number] Sodium Chloride (Nss 1000ml) 1,000 mls @ 999 mls/hr IV .Q1H1M ONE Stop: 08/01/21 13:04 Last Infusion: 08/01/21 13:11 Dose: 0 mls/hr Documented by: [id number] Admin: 08/01/21 12:10 Dose: 999 mls/hr Documented by: [id number] Promethazine HCl (Phenergan) 12.5 mg in 50.5 mls @ 202 mls/hr IV NOW STA Stop: 08/01/21 13:52 Last Infusion: 08/01/21 14:01 Dose: 0 mls/hr Documented by: [id number] Admin: 08/01/21 13:46 Dose: 202 mls/hr Documented by: [id number] Ioversol (Optiray 320 100ml) 93 ml IV ONCE ONE Stop: 08/01/21 12:36 Last Admin: 08/01/21 12:35 Dose: 93 ml Documented by: [id number] Morphine Sulfate (Morphine Sulfate 2 Mg/Ml Carp) 2 mg IV NOW STA Stop: 08/01/21 11:59 Last Admin: 08/01/21 12:09 Dose: 2 mg Documented by: [id number] Morphine Sulfate (Morphine Sulfate 2 Mg/Ml Carp) 2 mg IV NOW STA Stop: 08/01/21 12:55 Last Admin: 08/01/21 12:57 Dose: 2 mg Documented by: [id number] Ondansetron HCl (Ondansetron Inj 2 Mg/Ml 2 Ml Vial) 4 mg IV NOW STA Stop: 08/01/21 11:22 Last Admin: 08/01/21 11:27 Dose: 4 mg Documented by: [id number] Ondansetron HCl (Ondansetron Inj 2 Mg/Ml 2 Ml Vial) 4 mg IV NOW STA Stop: 08/01/21 11:59 Last Admin: 08/01/21 12:09 Dose: 4 mg Documented by: [id number] COVID-19 Results Results COVID-19 Adm Lab Results: RBC 4.37 M/uL (4.2-5.4) 08/01/21 WBC 27.18 K/uL (4.8-10.8) H 08/01/21 Hgb 13.8 g/dL (12.0-16.0) 08/01/21 Hct 39.5 % (37-47) 08/01/21 Plt Count 495 K/uL (130-400) H 08/01/21 Neutrophils (%) (Auto) 88.9 % 08/01/21 Lymphocytes (%) (Auto) 5.8 % 08/01/21 Monocytes # (Auto) 1.22 K/uL (0.11-0.59) H 08/01/21 Eosinophils # (Auto) 0.00 K/uL (0-0.5) 08/01/21 Immature Granulocyte % (Auto) 0.6 % 08/01/21 Neutrophils # (Auto) 24.19 K/uL (1.4-6.5) H 08/01/21 Lymphocytes # (Auto) 1.57 K/uL (1.2-3.4) 08/01/21 Monocytes # (Auto) 1.22 K/uL (0.11-0.59) H 08/01/21 Eosinophils # (Auto) 0.00 K/uL (0-0.5) 08/01/21 Basophils # (Auto) 0.05 K/uL (0-0.2) 08/01/21 Immature Granulocyte # (Auto) 0.15 K/uL (0.00-0.02) H 08/01/21 Na 143 mmol/L (136-145) 08/01/21 K 3.3 mmol/L (3.5-5.1) L 08/01/21 Cl 112 mmol/L (98-107) H 08/01/21 CO2 16 mmol/L (21-32) L 08/01/21 Anion Gap 15.0 (3-11) H 08/01/21 BUN 16 mg/dl (7-18) 08/01/21 Creatinine 1.04 mg/dl (0.6-1.2) 08/01/21 BUN/Creatinine Ratio 15.1 (10-20) 08/01/21 Glucose Level 126 mg/dl (70-99) H 08/01/21 Ca 9.2 mg/dl (8.5-10.1) 08/01/21 Total Bilirubin 0.5 mg/dl (0.2-1) 08/01/21 AST/SGOT 42 U/L (15-37) H 08/01/21 ALT/SGPT 32 U/L (12-78) 08/01/21 Alkaline Phosphatase 94 U/L (45-117) 08/01/21 Total Protein 8.8 gm/dl (6.4-8.2) H 08/01/21 Albumin 4.2 gm/dl (3.4-5.0) 08/01/21 Globulin 4.6 gm/dl (2.5-4.0) H 08/01/21 Albumin/Globulin Ratio 0.9 (0.9-2) 08/01/21 Troponin I < 0.015 ng/ml (0-0.045) 08/01/21 Procalcitonin < 0.05 ng/ml (0-0.5) 08/01/21 COVID-19 PCR NEGATIVE (Negative) 08/01/[address] 08/01/21 Chest X-Ray 08/01/21 Code Status & VTE Plan Code Status FULL CODE VTE Prophylaxis Plan VTE Prophylaxis will be ordered: No Supervising Physician Co-Signing Physician Notes 20-year-old female with PMH of anxiety on Prozac, on and off indigestion with as needed Tums/omeprazole, binge drinking came in 08/01 with acute onset of repeated vomiting early 5 AM in the morning associated with blood streaking. Her nausea and vomiting has been controlled after medications in the ED. #. Hypertension/tachycardia: Likely secondary to stress, continue to monitor #. Anion gap metabolic acidosis: Anion gap of 15, await serum osmolality. #. Leukocytosis: WBC elevated at 27,000, likely reactive #. Hematemesis/possible Rubi-Cruz tear: GI consulted, appreciate recommendation GENERAL: Alert and oriented x3. NAD, on RA. HEENT: No pallor, no icterus. Pupils equal, round and reactive to light. Oral mucosa moist. NECK: No JVD, no neck masses. HEART: S1 and S2 heard. Regular rate and rhythm. No murmur, no gallop. RESPIRATORY SYSTEM: Normal AP diameter. No accessory muscle use. No wheezing, no crackles. ABDOMEN: Soft, bowel sounds present, epigastric tender, no distention. CENTRAL NERVOUS SYSTEM: Alert and oriented x3. No facial droop. Speech is clear. Obeys simple commands. Moves extremities. EXTREMITIES: No edema, no erythema seen. I have seen and examined the patient and have discussed the case with the provider above. I agree with the assessment and plan as stated. (1) Vomiting Nausea presence: with nausea Vomiting Intractability: non-intractable Vomiting type: unspecified Qualified Code(s): R11.2 - Nausea with vomiting, unspecified
[2021-08-01] MEDS: POTASSIUM CHLORIDE / WTR 10 MEQ/100 ML PLCT IV SCH ×2 (14:55→16:12)
[2021-08-01] MEDS ORDERED: PANTOprazole 40 MG in SYRINGE 0 ML IV ONE (15:00)
[2021-08-01] MEDS ORDERED: MAGNESIUM HYDROXIDE SUSP 30 ML UDC PO PRN (18:47)
[2021-08-01] MEDS ORDERED: ACETAMINOPHEN 325 MG TAB PO PRN (18:47)
[2021-08-01] MEDS ORDERED: ALUMINUM/MAGNESIUM SUSP 30 ML UDC PO PRN (18:47)
[2021-08-01] MEDS ORDERED: POLYETHYLENE (MIRALAX) 17 GM PACK PO PRN (18:47)
[2021-08-01] MEDS ORDERED: PROMETHAZINE HCL 6.25 MG in SODIUM CHLORIDE 0.9% 50 ML IV PRN (18:47)
[2021-08-01] MEDS ORDERED: ACETAMINOPHEN 1,000 MG/100 ML VIAL IV PRN (19:57)
[2021-08-01] MEDS: NSS + 20MEQ KCL 20 MEQ/1,000 ML BAG IV SCH (20:19)
[2021-08-01] MEDS: PANTOprazole 40 MG in SYRINGE 0 ML IV SCH (21:38)
[2021-08-02 06:49] LABS: Basophils # (auto) 0.02 K/uL (0-0.2); Basophils % (auto) 0.1 %; Eosinophils # (auto) 0.01 K/uL (0-0.5); Eosinophils % (auto) 0.1 %; Hematocrit (blood only) 34.5 % (37-47); Hemoglobin 11.5 g/dL (12.0-16.0); Immature Granulocytes # (auto) 0.03 K/uL (0.00-0.02); Immature Granulocytes % (auto) 0.2 %; Lymphocytes # (auto) 2.38 K/uL (1.2-3.4); Lymphocytes % (auto) 13.7 %; Mean Corpuscular Hemoglobin 31.1 pg (25-34); Mean Corpuscular Hgb Conc 33.3 g/dL (32-36); Mean Corpuscular Volume 93.2 fL (80-100); Mean Platelet Volume 9.5 fL (7.4-10.4); Monocytes # (auto) 1.93 K/uL (0.11-0.59); Monocytes % (auto) 11.1 %; Neutrophils # (auto) 13.03 K/uL (1.4-6.5); Neutrophils % (auto) 74.8 %; Platelet Count 405 K/uL (130-400); RDW Coefficient of Variation 12.9 % (11.5-14.5); RDW Standard Deviation 44.6 fL (36.4-46.3)
[2021-08-02 07:16] LABS: Albumin Level 3.2 gm/dl (3.4-5.0); BUN Creatinine Ratio 22.5 (10-20); Calcium 8.5 mg/dl (8.5-10.1); Creatinine Clr Calc Pharmacy 87.2 ml/min; Est GFR (African American) 127.9 ml/min; Est GFR (Non-African American) 110.4 ml/min; Potassium 3.7 mmol/L (3.5-5.1)
[2021-08-02 07:25] LABS: Albumin Globulin Ratio 0.9 (0.9-2); Bilirubin,Total 0.6 mg/dl (0.2-1); Globulin 3.6 gm/dl (2.5-4.0); Total Protein 6.8 gm/dl (6.4-8.2)
[2021-08-02] MEDS: FLUoxetine HCL 10 MG CAP PO SCH (07:56)
[2021-08-02] MEDS: PANTOprazole 40 MG in SYRINGE 0 ML IV SCH (07:56)
[2021-08-02] MEDS ORDERED: SODIUM CHLORIDE 0.45 % 1,000 ML IV SCH (08:00)
[2021-08-02] MEDS: NSS + 20MEQ KCL 20 MEQ/1,000 ML BAG IV SCH (08:31)
--- NOTE | 2021-08-02 11:11 | Gastrointestinal Consultation ---
Date of Consultation August 02, 2021 Assessment & Plan (1) Vomitin20 year old female admitted w/ nausea/vomiting abd pain and history of hematemesis. Symptos improved on antiemetics and now feeling well. She is normotensive, HGB remained stable and CTAP w/ Questionable mild thickening at the gastroesophageal junction however, no paraesophageal edema/fluid or pneumoperitoneum to suggest an esophageal tear. Clear liquids Antiemetics PRN PO PPI 40 mg daily PO Liquid Carafate QID x 1 month OP EGD Thank you for allowing us to participate in the care of this patient. Please call with any acute changes, questions or concerns. Please see addendum below with additional recommendation from my supervising physician. Supervising Physician Co-Signing Physician Notes I performed a history and physical examination of the patient today, including specifically on physical exam - soft abdomen. I have discussed the patient's management with the advanced practitioner. Please refer to the nurse practitioner's note for the documented findings and plan of care. Pain resolved. PO PPI OP EGD Recall GI if needed History of Present Illness Reason for Consultation: abd pain Requesting Physician: Ludwin Attending Physician: Chong Mascorro MD History of Present Illness 20 year old female without past medical history admitted with pain, nausea, vomiting onset yesterday. Notes this was after tailgating, drank 2 trulys and had 2 shots of liquor. Upper abd pain to start w/ emesis. Notes progressively worse emesis with eventual hematemesis. Notes her abd pain is midline and radiates up her esophagus. Denies GERD Denies any change in bowel habits. Since started on Phenergan symptoms resolves and feeling well at this time. + ETOH - NSAIDs - tobacco CTAP 2020: Questionable mild thickening at the gastroesophageal junction. However, no paraesophageal edema/fluid or pneumoperitoneum to suggest an esophageal tear.No bowel wall thickening or obstruction.The lungs are clear. Allergies Allergy/AdvReac Type Severity Reaction Status Date / Time bacitracin Allergy Redness of Unverified 08/01/21 12:06 [From Neosporin Skin ([id number])] neomycin Allergy Redness of Unverified 08/01/21 12:06 [From Neosporin Skin ([id number])] polymyxin B Allergy Redness of Unverified 08/01/21 12:06 [From Neosporin Skin ([id number])] Home Medications Medication Instructions Recorded Confirmed Type norgestrel 0.3 mg-ethinyl 1 tab PO DAILY 11/04/19 08/01/21 History estradiol 30 mcg tablet (Charisma (28)) fluoxetine 10 mg capsule 10 mg PO DAILY 08/01/21 08/01/21 History Patient History Medical History (Updated 08/01/21 @ 15:23 by Nora Ochoa PA-C) GERD (gastroesophageal reflux disease) Surgical History (Updated 08/01/21 @ 14:08 by Nora Ochoa PA-C) History of shoulder surgery R labral repair History of wisdom tooth extraction Family History (Updated 08/01/21 @ 14:09 by Nora Ochoa PA-C) Mother Hypertension Father Hypertension Gout Other Kidney stones Social History (Updated 08/01/21 @ 14:10 by Nora Ochoa PA-C) Smoking Status: Never smoker Hx Alcohol Use: Yes Alcohol type: beer and hard liquor Alcohol Intake Frequency: 2-4 x/Month Hx Substance Use: No Preferred Language: Estonian Communication Ability: Effective Beliefs That Will Affect Care: None marital status: Single Current Living Situation: Other Current Living Situation Comment: Pt lives on campus Other Information That Helps Us Care for You: No Feels Safe at Home: Yes Safety Concerns: Feels Safe At This Time Assistive Devices: None Review of Systems Review of Systems: All systems reviewed & are unremarkable except as noted in HPI & below Physical Exam Constitutional: WD/WN, vitals as above Neck: trachea midline, no thyromegaly Respiratory: normal respiratory effort, lungs clear to auscultation Cardiovascular: RRR, no murmur, no edema Gastrointestinal (Abdomen): normal bowel sounds, soft, nontender, no hepatosplenomegaly Results & Data ([facility]) Vital Signs (Past 12 Hours) Vital Signs Temp Pulse Resp BP Pulse Ox 08/02/21 07:13 37.2 C 66 18 124/77 96 Laboratory Results 08/02/21 08/02/21 08/01/21 Range/Units 05:42 05:42 15:08 WBC 17.40 H (4.8-10.8) K/uL RBC 3.70 L (4.2-5.4) M/uL Hgb 11.5 L (12.0-16.0) g/dL Hct 34.5 L (37-47) % MCV 93.2 (80-100) fL MCH 31.1 (25-34) pg MCHC 33.3 (32-36) g/dL RDW Std Deviation 44.6 (36.4-46.3) fL RDW Coeff of Cole 12.9 (11.5-14.5) % Plt Count 405 H (130-400) K/uL MPV 9.5 (7.4-10.4) fL Immature Gran % (Auto) 0.2 % Neut % (Auto) 74.8 % Lymph % (Auto) 13.7 % [place] % (Auto) 11.1 % Eos % (Auto) 0.1 % Baso % (Auto) 0.1 % Neut # (Auto) 13.03 H (1.4-6.5) K/uL Lymph # (Auto) 2.38 (1.2-3.4) K/uL [place] # (Auto) 1.93 H (0.11-0.59) K/uL Eos # (Auto) 0.01 (0-0.5) K/uL Baso # (Auto) 0.02 (0-0.2) K/uL Immature Gran # (Auto) 0.03 H (0.00-0.02) K/uL Sodium 141 (136-145) mmol/L Potassium 3.7 (3.5-5.1) mmol/L Chloride 112 H (98-107) mmol/L Carbon Dioxide 22 (21-32) mmol/L Anion Gap 7.0 (3-11) BUN 17 (7-18) mg/dl Creatinine 0.77 (0.6-1.2) mg/dl Est Cr Clr Drug Dosing 87.2 ml/min Est GFR ( Amer) 127.9 ml/min Est GFR (Non-Af Amer) 110.4 ml/min BUN/Creatinine Ratio 22.5 H (10-20) Glucose 81 (70-99) mg/dl Osmolality (280-300) mOsm/kg Calcium 8.5 (8.5-10.1) mg/dl Total Bilirubin 0.6 (0.2-1) mg/dl AST 26 (15-37) U/L ALT 20 (12-78) U/L Alkaline Phosphatase 71 (45-117) U/L Troponin I (0-0.045) ng/ml Total Protein 6.8 D (6.4-8.2) gm/dl Albumin 3.2 L (3.4-5.0) gm/dl Globulin 3.6 (2.5-4.0) gm/dl Albumin/Globulin Ratio 0.9 (0.9-2) Lipase 108 (73-393) U/L Procalcitonin (0-0.5) ng/ml HCG, Qual (Negative) Urine Color Urine Appearance (Clear) Urine pH (4.5-7.5) Ur Specific [place] (1.000-1.030) Urine Protein (Negative) Urine Glucose (UA) (Negative) Urine Ketones (Negative) Urine Blood (Negative) Urine Nitrite (Negative) Urine Bilirubin (Negative) Urine Urobilinogen (Negative) Ur Leukocyte Esterase (Negative) Urine WBC (Auto) (0-5) /hpf Urine RBC (Auto) (0-4) /hpf U Hyaline Cast (Auto) (0-5) /lpf U Epithel Cells (Auto) (0-5) /lpf Urine Bacteria (Auto) (Negative) COVID-19 Eval Order SARS-CoV-2 (PCR) NEGATIVE (Negative) 08/01/21 08/01/21 08/01/21 Range/Units 15:08 13:13 11:07 WBC (4.8-10.8) K/uL RBC (4.2-5.4) M/uL Hgb (12.0-16.0) g/dL Hct (37-47) % MCV (80-100) fL MCH (25-34) pg MCHC (32-36) g/dL RDW Std Deviation (36.4-46.3) fL RDW Coeff of Cole (11.5-14.5) % Plt Count (130-400) K/uL MPV (7.4-10.4) fL Immature Gran % (Auto) % Neut % (Auto) % Lymph % (Auto) % [place] % (Auto) % Eos % (Auto) % Baso % (Auto) % Neut # (Auto) (1.4-6.5) K/uL Lymph # (Auto) (1.2-3.4) K/uL [place] # (Auto) (0.11-0.59) K/uL Eos # (Auto) (0-0.5) K/uL Baso # (Auto) (0-0.2) K/uL Immature Gran # (Auto) (0.00-0.02) K/uL Sodium (136-145) mmol/L Potassium (3.5-5.1) mmol/L Chloride (98-107) mmol/L Carbon Dioxide (21-32) mmol/L Anion Gap (3-11) BUN (7-18) mg/dl Creatinine (0.6-1.2) mg/dl Est Cr Clr Drug Dosing ml/min Est GFR ( Amer) ml/min Est GFR (Non-Af Amer) ml/min BUN/Creatinine Ratio (10-20) Glucose (70-99) mg/dl Osmolality 311 H (280-300) mOsm/kg Calcium (8.5-10.1) mg/dl Total Bilirubin (0.2-1) mg/dl AST (15-37) U/L ALT (12-78) U/L Alkaline Phosphatase (45-117) U/L Troponin I (0-0.045) ng/ml Total Protein (6.4-8.2) gm/dl Albumin (3.4-5.0) gm/dl Globulin (2.5-4.0) gm/dl Albumin/Globulin Ratio (0.9-2) Lipase (73-393) U/L Procalcitonin (0-0.5) ng/ml HCG, Qual (Negative) Urine Color Yellow Urine Appearance Clear (Clear) Urine pH 7.5 (4.5-7.5) Ur Specific [place] 1.025 (1.000-1.030) Urine Protein Negative (Negative) Urine Glucose (UA) Negative (Negative) Urine Ketones 1+ H (Negative) Urine Blood Trace H (Negative) Urine Nitrite Negative (Negative) Urine Bilirubin Negative (Negative) Urine Urobilinogen Negative (Negative) Ur Leukocyte Esterase Negative (Negative) Urine WBC (Auto) 5-10 H (0-5) /hpf Urine RBC (Auto) 0-4 (0-4) /hpf U Hyaline Cast (Auto) 1-5 (0-5) /lpf U Epithel Cells (Auto) 20-30 H (0-5) /lpf Urine Bacteria (Auto) Negative (Negative) COVID-19 Eval Order Covid19 at [facility] SARS-CoV-2 (PCR) (Negative) 08/01/21 08/01/21 08/01/21 Range/Units 11:07 11:07 11:07 WBC (4.8-10.8) K/uL RBC (4.2-5.4) M/uL Hgb (12.0-16.0) g/dL Hct (37-47) % MCV (80-100) fL MCH (25-34) pg MCHC (32-36) g/dL RDW Std Deviation (36.4-46.3) fL RDW Coeff of Cole (11.5-14.5) % Plt Count (130-400) K/uL MPV (7.4-10.4) fL Immature Gran % (Auto) % Neut % (Auto) % Lymph % (Auto) % [place] % (Auto) % Eos % (Auto) % Baso % (Auto) % Neut # (Auto) (1.4-6.5) K/uL Lymph # (Auto) (1.2-3.4) K/uL [place] # (Auto) (0.11-0.59) K/uL Eos # (Auto) (0-0.5) K/uL Baso # (Auto) (0-0.2) K/uL Immature Gran # (Auto) (0.00-0.02) K/uL Sodium (136-145) mmol/L Potassium (3.5-5.1) mmol/L Chloride (98-107) mmol/L Carbon Dioxide (21-32) mmol/L Anion Gap (3-11) BUN (7-18) mg/dl Creatinine (0.6-1.2) mg/dl Est Cr Clr Drug Dosing ml/min Est GFR ( Amer) ml/min Est GFR (Non-Af Amer) ml/min BUN/Creatinine Ratio (10-20) Glucose (70-99) mg/dl Osmolality (280-300) mOsm/kg Calcium (8.5-10.1) mg/dl Total Bilirubin (0.2-1) mg/dl AST (15-37) U/L ALT (12-78) U/L Alkaline Phosphatase (45-117) U/L Troponin I < 0.015 (0-0.045) ng/ml Total Protein (6.4-8.2) gm/dl Albumin (3.4-5.0) gm/dl Globulin (2.5-4.0) gm/dl Albumin/Globulin Ratio (0.9-2) Lipase (73-393) U/L Procalcitonin < 0.05 (0-0.5) ng/ml HCG, Qual Negative (Negative) Urine Color Urine Appearance (Clear) Urine pH (4.5-7.5) Ur Specific [place] (1.000-1.030) Urine Protein (Negative) Urine Glucose (UA) (Negative) Urine Ketones (Negative) Urine Blood (Negative) Urine Nitrite (Negative) Urine Bilirubin (Negative) Urine Urobilinogen (Negative) Ur Leukocyte Esterase (Negative) Urine WBC (Auto) (0-5) /hpf Urine RBC (Auto) (0-4) /hpf U Hyaline Cast (Auto) (0-5) /lpf U Epithel Cells (Auto) (0-5) /lpf Urine Bacteria (Auto) (Negative) COVID-19 Eval Order SARS-CoV-2 (PCR) (Negative) 08/01/21 08/01/21 Range/Units 11:07 11:07 WBC 27.18 H (4.8-10.8) K/uL RBC 4.37 (4.2-5.4) M/uL Hgb 13.8 (12.0-16.0) g/dL Hct 39.5 (37-47) % MCV 90.4 (80-100) fL MCH 31.6 (25-34) pg MCHC 34.9 (32-36) g/dL RDW Std Deviation 41.8 (36.4-46.3) fL RDW Coeff of Cole 12.7 (11.5-14.5) % Plt Count 495 H (130-400) K/uL MPV 9.1 (7.4-10.4) fL Immature Gran % (Auto) 0.6 % Neut % (Auto) 88.9 % Lymph % (Auto) 5.8 % [place] % (Auto) 4.5 % Eos % (Auto) 0.0 % Baso % (Auto) 0.2 % Neut # (Auto) 24.19 H (1.4-6.5) K/uL Lymph # (Auto) 1.57 (1.2-3.4) K/uL [place] # (Auto) 1.22 H (0.11-0.59) K/uL Eos # (Auto) 0.00 (0-0.5) K/uL Baso # (Auto) 0.05 (0-0.2) K/uL Immature Gran # (Auto) 0.15 H (0.00-0.02) K/uL Sodium 143 (136-145) mmol/L Potassium 3.3 L (3.5-5.1) mmol/L Chloride 112 H (98-107) mmol/L Carbon Dioxide 16 L (21-32) mmol/L Anion Gap 15.0 H (3-11) BUN 16 (7-18) mg/dl Creatinine 1.04 (0.6-1.2) mg/dl Est Cr Clr Drug Dosing 64.6 ml/min Est GFR ( Amer) 88.9 ml/min Est GFR (Non-Af Amer) 76.7 ml/min BUN/Creatinine Ratio 15.1 (10-20) Glucose 126 H (70-99) mg/dl Osmolality (280-300) mOsm/kg Calcium 9.2 (8.5-10.1) mg/dl Total Bilirubin 0.5 (0.2-1) mg/dl AST 42 H (15-37) U/L ALT 32 (12-78) U/L Alkaline Phosphatase 94 (45-117) U/L Troponin I (0-0.045) ng/ml Total Protein 8.8 H (6.4-8.2) gm/dl Albumin 4.2 (3.4-5.0) gm/dl Globulin 4.6 H (2.5-4.0) gm/dl Albumin/Globulin Ratio 0.9 (0.9-2) Lipase 76 (73-393) U/L Procalcitonin (0-0.5) ng/ml HCG, Qual (Negative) Urine Color Urine Appearance (Clear) Urine pH (4.5-7.5) Ur Specific [place] (1.000-1.030) Urine Protein (Negative) Urine Glucose (UA) (Negative) Urine Ketones (Negative) Urine Blood (Negative) Urine Nitrite (Negative) Urine Bilirubin (Negative) Urine Urobilinogen (Negative) Ur Leukocyte Esterase (Negative) Urine WBC (Auto) (0-5) /hpf Urine RBC (Auto) (0-4) /hpf U Hyaline Cast (Auto) (0-5) /lpf U Epithel Cells (Auto) (0-5) /lpf Urine Bacteria (Auto) (Negative) COVID-19 Eval Order SARS-CoV-2 (PCR) (Negative) (1) Vomiting Nausea presence: with nausea Vomiting Intractability: non-intractable Vomiting type: unspecified Qualified Code(s): R11.2 - Nausea with vomiting, unspecified
--- NOTE | 2021-08-02 15:05 | Electrocardiogram Report ---
Test Reason : Blood Pressure : / mmHG Vent. Rate : 086 BPM Atrial Rate : 086 BPM P-R Int : 144 ms QRS Dur : 082 ms QT Int : 426 ms P-R-T Axes : 029 044 -28 degrees QTc Int : 509 ms Normal sinus rhythm T wave abnormality, consider inferior ischemia Abnormal ECG No previous ECGs available Confirmed by Fidel Hsu ([id number]) on 08/02/2021 3:04:42 PM Referred By: REFERRED SELF Confirmed By:Fidel Hsu
--- NOTE | 2021-08-02 17:01 | Hospitalist Progress Note ---
Date of Service August 02, 2021 Assessment & Plan (1) Epigastric abdominal pain: (2) Leukocytosis: Plan: 20-year-old female with PMH of anxiety on Prozac, on and off indigestion with as needed Tums/omeprazole, binge drinking came in 08/01 with acute onset of repeated vomiting early 5 AM in the morning associated with blood streaking. Her nausea and vomiting has been controlled after medications in the ED. #. Hematemesis/possible Rubi-Boyer tear: GI on boardadvance diet, outpatient EGD. PPI to daily and Carafate 1 month. #. Hypertension/tachycardia: Likely secondary to stress -improved #. Anion gap metabolic acidosis: Anion gap of 15, increase serum osmolality. Improved. #. Leukocytosis: WBC elevated at 27,000, likely reactiveimproving. Pro-Marciano was negative. Follow-up labs. #. Hypokalemia: Present at admission, replaced. Follow-up labs. Disposition: Likely discharge tomorrow if no new issues arises. Admission and Anticipated Discharge Date Admission Date: August 01, 2021 Subjective Patient was sitting up in bed, room air, NAD, no issues overnight. Patient denies nausea/vomiting. Will start patient on full liquid diet and advance as tolerated. Denies any other review of symptoms. Physical Exam Physical Exam: GENERAL: Alert and oriented x3. NAD, on RA. HEENT: No pallor, no icterus. Pupils equal, round and reactive to light. Oral mucosa moist. NECK: No JVD, no neck masses. HEART: S1 and S2 heard. Regular rate and rhythm. No murmur, no gallop. RESPIRATORY SYSTEM: Normal AP diameter. No accessory muscle use. No wheezing, no crackles. ABDOMEN: Soft, bowel sounds present, epigastric tender, no distention. CENTRAL NERVOUS SYSTEM: Alert and oriented x3. No facial droop. Speech is clear. Obeys simple commands. Moves extremities. EXTREMITIES: No edema, no erythema seen. Results & Data Results & Data ([facility]) Vital Signs (Past 12 Hours) Vital Signs Temp Pulse Resp BP Pulse Ox 08/02/21 15:22 37.4 C 77 20 116/74 96 08/02/21 07:13 37.2 C 66 18 124/77 96
[2021-08-03 07:44] LABS: Hematocrit (blood only) 37.9 % (37-47); Hemoglobin 12.7 g/dL (12.0-16.0); Mean Corpuscular Hemoglobin 30.6 pg (25-34); Mean Corpuscular Hgb Conc 33.5 g/dL (32-36); Mean Corpuscular Volume 91.3 fL (80-100); Mean Platelet Volume 8.9 fL (7.4-10.4); Platelet Count 331 K/uL (130-400); RDW Coefficient of Variation 12.6 % (11.5-14.5); RDW Standard Deviation 42.7 fL (36.4-46.3); Red Blood Count 4.15 M/uL (4.2-5.4); White Blood Count 8.28 K/uL (4.8-10.8)
[2021-08-03 08:05] LABS: BUN Creatinine Ratio 18.2 (10-20); Calcium 8.7 mg/dl (8.5-10.1); Creatinine Clr Calc Pharmacy 75.5 ml/min; Est GFR (African American) 107.4 ml/min; Est GFR (Non-African American) 92.6 ml/min; Magnesium 2.1 mg/dl (1.8-2.4); Potassium 3.9 mmol/L (3.5-5.1)
[2021-08-03] MEDS ORDERED: PANTOprazole 40 MG TAB PO SCH (09:00)
[2021-08-03] MEDS: FLUoxetine HCL 10 MG CAP PO SCH (09:03)
--- NOTE | 2021-08-03 17:57 | Discharge Summary ---
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 She states she has been vomiting persistently since 5 AM with associated nausea, epigastric pain and chest pain. Initially pain started in epigastrium, was nonradiating, sharp, nothing made better or worse, but has since radiated to the chest which she describes as burning. She describes vomiting as being profuse and brown with occasional blood. She feels her mouth now taste like blood. She has had history of indigestion in the past but has never had anything significant like this. 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 She was tailgating yesterday and does admit to having 2 shots of tequila and to truly's. She states she typically drinks much more than this so does not suspect this is related to drinking. She denies any illicit substance use. She feels chills and sweats but denies any gaye fever, lightheadedness, dizziness, cough, URI symptoms, dysuria, increased urgency or frequency with urination, melena or hematochezia. She does have underlying depression and anxiety for which she takes Prozac for. She is also on control. In ED they were having difficulty controlling symptoms which is why she was referred for admission. She received 2 L of IV fluid as well as 8 mg of IV Zofran and 4 mg of IV morphine. Prior to my evaluation she did receive IV Phenergan which has subsided her symptoms. ED did reach out to GI on-call Dr. Lainez who recommended observation due to possible concern for Rubi-Boyer tear. Admission Exam Per Admitting Provider GENERAL: Alert and oriented x3. NAD, on RA. HEENT: No pallor, no icterus. Pupils equal, round and reactive to light. Oral mucosa moist. NECK: No JVD, no neck masses. HEART: S1 and S2 heard. Regular rate and rhythm. No murmur, no gallop. RESPIRATORY SYSTEM: Normal AP diameter. No accessory muscle use. No wheezing, no crackles. ABDOMEN: Soft, bowel sounds present, epigastric tender, no distention. CENTRAL NERVOUS SYSTEM: Alert and oriented x3. No facial droop. Speech is clear. Obeys simple commands. Moves extremities. EXTREMITIES: No edema, no erythema seen. Principal Diagnosis Esophagitis/likely Rubi-Boyer tear Leukocytosisimproved Discharge Exam GENERAL: Alert and oriented x3. NAD, on RA. HEENT: No pallor, no icterus. Pupils equal, round and reactive to light. Oral mucosa moist. NECK: No JVD, no neck masses. HEART: S1 and S2 heard. Regular rate and rhythm. No murmur, no gallop. RESPIRATORY SYSTEM: Normal AP diameter. No accessory muscle use. No wheezing, no crackles. ABDOMEN: Soft, bowel sounds present, non tender, no distention. CENTRAL NERVOUS SYSTEM: Alert and oriented x3. No facial droop. Speech is clear. Obeys simple commands. Moves extremities. EXTREMITIES: No edema, no erythema seen. Discharge Data Allergies Allergy/AdvReac Type Severity Reaction Status Date / Time bacitracin Allergy Redness of Unverified 08/01/21 12:06 [From Neosporin Skin ([id number])] neomycin Allergy Redness of Unverified 08/01/21 12:06 [From Neosporin Skin ([id number])] polymyxin B Allergy Redness of Unverified 08/01/21 12:06 [From Neosporin Skin ([id number])] Consultations 08/01/21 13:50 ED Decision to Admit Stat 08/01/21 18:47 Consult Gastroenterology Routine Ordered Studies 08/01/21 12:00 CT abd pelvis IV con only Stat CT chest diagnostic w con Stat Hospital Course (1) Epigastric abdominal pain: (2) Leukocytosis: 20-year-old female with PMH of anxiety on Prozac, on and off indigestion with as needed Tums/omeprazole, binge drinking came in 08/01 with acute onset of repeated vomiting early 5 AM in the morning associated with blood streaking. Her nausea and vomiting has been controlled after medications in the ED. #. Hematemesis/possible Rubi-Boyer tear: GI on boardadvance diet, outpatient EGD. PPI daily and Carafate 1 month. #. Hypertension/tachycardia: Likely secondary to stress -improved #. Anion gap metabolic acidosis: Anion gap of 15, increase serum osmolality. Improved. #. Leukocytosis: WBC elevated at 27,000, likely reactiveresolved #. Hypokalemia: Present at admission, replaced. Resolved Patient discharged to home with following instruction: Follow-up with your primary care physician within a week time. Get CBC done in 3 days. Send the result to your primary care physician. Follow-up with GI doctor as an outpatient, for outpatient EGD. Slowly advance her diet to a regular diet. Take medications as prescribed. Avoid NSAIDs, alcohol, tobacco. If needed, use Tylenol for pain management. Total Time Total Time Spent Total Time Spent (In Minutes): 35 Discharge Plan Discharge Items Patient Disposition: Home - Self-Care Reason For Visit: NAUSEA AND VOMITING Discharge Diagnosis: Esophagitis/likely Rubi-Boyer tear Leukocytosisimproved Activity: Resume your previous activity Non-emergency contact: Primary Care Provider Call non-emergency contact if: you have any medication questions and your symptoms worsen Follow-up/Referrals: Ally Haskins CRNP [Nurse Practitioner] - Valentine Knapp MD [Primary Care Provider] - Diet: Other - See Diet Comment Diet Comment: Start with soft diet, slowly advance to your regular baseline diet. Addtl Attending Provider Instructions: Follow-up with your primary care physician within a week time. Get CBC done in 3 days. Send the result to your primary care physician. Follow-up with GI doctor as an outpatient, for outpatient EGD. Slowly advance her diet to a regular diet. Take medications as prescribed. Avoid NSAIDs, alcohol, tobacco. If needed, use Tylenol for pain management. Pending Studies at Discharge: No Stand-Alone Forms: Smarter Remarketer, Smoking Cessation Medications and DC Order Prescriptions: New pantoprazole 40 mg Tablet,Delayed Release (Dr/Ec) 40 mg PO DAILY 30 Days Qty: 30 RF: 0 sucralfate [Carafate] 1 gram tablet 1 g PO ACHS 28 Days Qty: 28 RF: 0 Continued Cryselle (28) 0.3-30 mg-mcg Tablet 1 tab PO DAILY RF: 0 fluoxetine 10 mg capsule 10 mg PO DAILY RF: 0 Discharge Orders: Discharge Order (Routine); Ordered 08/03/21 Ordered By: Chong Mondragon/Other Patient Handouts: Understanding Blood and Blood ... Admission Data Admit Date/Time: 08/01/21 14:28 Attending Provider: Chong Mascorro Admit Provider: Chong Mascorro Primary Care Provider: Valentine Knapp Other Providers: Chong Mascorro ; Gracie Lainez Other Interventions: Discharge Summary Assessment (RN) Last Done: 08/03/21 10:13
== END 2021-08-03 12:25 | disposition home or self-care (01) ==
LOC: 2N 10:09 → ED 10:09 → 2N 18:29 → 3W 08-03 02:06